=== PATIENT | female | born 1990 | race Caucasian/White ===

== ENCOUNTER → 2018-08-13 07:44 | Observation (INO) ==
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
[2018-08-12 21:02] LABS: Basophils % 0.4 %; Eosinophils % 0.3 %; Hematocrit 32.5 % (35.3-44.9); Hemoglobin 10.7 g/dL (11.5-15.4); Lymphocytes # 1.3 K/mcL (0.6-4.6); Lymphocytes % 13.1 %; Mean Corpuscular HGB Conc 32.9 g/dL (31.6-35.5); Mean Corpuscular Hemoglobin 28.8 pg (28.0-33.3); Mean Corpuscular Volume 87.6 fL (83.0-100.0); Mean Platelet Volume 11.6 fL (9.4-12.4); Monocytes # 0.6 K/mcL (0.0-1.3); Monocytes % 5.5 %; Neutrophils # 8.1 K/mcL (1.6-8.9); Platelet Count 178 K/mcL (140-400); Red Blood Count 3.71 M/mcL (3.82-4.97); Red Cell Distribution Width 13.4 % (11.5-14.5); Segmented Neutrophils % 79.7 %
[2018-08-12] MEDS: Acetaminophen 325 MG TABLET PO PRN (21:02)
[2018-08-12 21:23] LABS: Amphetamine Screen,Urine Negative ng/mL (Cutoff=1000); Barbiturate Screen,Urine Negative ng/mL (Cutoff=200); Benzodiazepines Screen,Urine Negative ng/mL (Cutoff=200); Cannabinoid Screen,Urine Negative ng/mL (Cutoff = 50); Cocaine Screen,Urine Negative ng/mL (Cutoff= 300); Opiate Screen,Urine Negative ng/mL (Cutoff=300); Phencyclidine Screen,Urine Negative ng/mL (Cutoff=25)
[2018-08-13] MEDS: Acetaminophen 325 MG TABLET PO PRN (05:42)
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
== END | disposition home or self-care (01) ==
LOC: 1NENULAB
PROVIDERS: ADMIT Registered Nurse; ATTEND Registered Nurse

== ENCOUNTER 2018-10-16 16:55 | Inpatient (IN) ==
[2018-10-16 15:45] LABS: Basophils % 0.5 %; Eosinophils % 0.3 %; Hematocrit 35.1 % (35.3-44.9); Hemoglobin 11.5 g/dL (11.5-15.4); Immature Granulocytes % 0.9 % (0-4); Lymphocytes # 1.5 K/mcL (0.6-4.6); Lymphocytes % 16.9 %; Mean Corpuscular HGB Conc 32.8 g/dL (31.6-35.5); Mean Corpuscular Hemoglobin 28.5 pg (28.0-33.3); Mean Corpuscular Volume 87.1 fL (83.0-100.0); Mean Platelet Volume 12.1 fL (9.4-12.4); Monocytes # 0.5 K/mcL (0.0-1.3); Monocytes % 5.6 %; Neutrophils # 6.7 K/mcL (1.6-8.9); Platelet Count 162 K/mcL (140-400); Red Blood Count 4.03 M/mcL (3.82-4.97); Red Cell Distribution Width 14.6 % (11.5-14.5); Segmented Neutrophils % 75.8 %
[2018-10-16 15:52] LABS: Protein/Creatinine Ratio,Urine 0.14 mg/mg (0.00-0.20)
[2018-10-16 15:53] LABS: Amphetamine Screen,Urine Negative ng/mL (Cutoff=1000); Barbiturate Screen,Urine Negative ng/mL (Cutoff=200); Benzodiazepines Screen,Urine Negative ng/mL (Cutoff=200); Cannabinoid Screen,Urine Negative ng/mL (Cutoff = 50); Cocaine Screen,Urine Negative ng/mL (Cutoff= 300); Opiate Screen,Urine Negative ng/mL (Cutoff=300); Phencyclidine Screen,Urine Negative ng/mL (Cutoff=25)
[2018-10-16 16:01] LABS: Alanine Aminotransferase 8 Units/L (7-52); Aspartate Amino Transferase 15 Units/L (13-39); BUN/Creatinine Ratio 15 (6-26); Blood Urea Nitrogen 9 mg/dL (6-20); Lactate Dehydrogenase 142 Units/L (140-271); eGFR For Non-African Americans > 60 (> 60)
[~2018-10-16 16:55] MED LIST: *HR* Nalbuphine 10 MG/ML AMPUL IVP PRN; Famotidine 20 MG/2 ML VIAL IVP PRN; Naloxone 0.4 MG/ML INJ IVP PRN; Ondansetron 4 MG/2 ML VIAL IVP PRN
[2018-10-16] MEDS ORDERED: Ringers Solution, Lactated 1,000 ML IVC SCH (17:00)
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
--- NOTE | 2018-10-16 19:08 | Anesthesia Evaluation PreOp ---
Date of Encounter: 10/16/18 Time of Encounter: 19:05 - Past History Planned Operation: TANIYA Cardiac History: Denies any Significant Hx Pulmonary History: Denies Any Significant HX LENS MARKER History: Denies Any Significant HX Other Medical History: GERD Anesthesia History: No Prior Anesthetic Complications, Past Anesthesia ([place] teeth extraction) : Yes Alcohol Use: none Drug use: none Medications and Allergies Vitamins 1 tab PO DAILY 08/12/18 [History] Allergy/AdvReac Type Severity Reaction Status Date / Time No Known Allergies Allergy Verified 08/12/18 18:40 - Meds/Allergy Pre-op Review Medications Reviewed: Yes Allergies Reviewed: Yes Anesthesia Results - Labs 10/16/18 15:22 10/16/18 15:30 Anesthesia Exam BP 138/99 P 91 R 16 T 98.5 Height: 5'5" Weight: 112.2kg NPO (# of Hours): 5hrs solids Pain Scale: 1 Pain Scale Used: Numeric (1 - 10) - HEENT Pupil (Motor): Pupils equal Mallampati: II Teeth: Normal Oral Opening: Greater than 3 - LENS MARKER LOC: Oriented LENS MARKER Motor: Normal RUE, Normal LUE, Normal RLE, Normal LLE, Normal Face LENS MARKER Sensory: Normal: RUE, LUE, RLE, LLE, Face - Cardiac Rhythm: Regular Murmur: None JVD: No Carotid Bruit: No - Pulmonary Breath Sounds: bilateral Clear Respiratory Effort: Symmetrical Anesthesia Assess/Plan ASA Score: 2 Level of consciousness: Cooperative Anesthetic Plan: Epidural Autologous Blood: No Monitoring Plan: Standard Monitors Recovery Plan: Other
--- NOTE | 2018-10-16 22:06 | OB Labor Progress Note ---
Date of Encounter: 10/16/18 Time of Encounter: 22:03 Labor Progress Note - Subjective Subjective: Patient doing well, denies pain, headache, visual disturbances or epigastric pain - Heart Tones Heart Tones: 140 bpm moderate variability +15x15 accels no decels noted. Cat 1 tracing - [place]: occasional - Interventions Interventions: Discussed POC with patient and reviewed BPs, EFM and toco. - Plan Physician notified: Yes Physician notified details: Updated on patient's status and plan of care Plan: Continue management Cervidil to be removed [id number]
[2018-10-17] MEDS ORDERED: miSOPROStol 25 MCG TABLET PO PRN (06:49)
--- NOTE | 2018-10-17 06:55 | OB Labor Progress Note ---
Date of Encounter: 10/17/18 Time of Encounter: 06:53 Labor Progress Note - Subjective Subjective: Patient resting. Patient was able to sleep through the night. Discussed POC with patient. Patient denies any questions or concerns. - Cervix Cervix: 1.5/90/-1 - Heart Tones Heart Tones: 135 bpm moderate variability +15x15 accels no decels noted. Cat. 1 tracing - [place]: irregular - Interventions Interventions: SVE, sommers catheter placed for IOL. 40cc sterile water placed in balloon. Patien t tolerated well. - Plan Physician notified: No Plan: Continue labor management Cytotec 50mcg po x1
[2018-10-17] MEDS ORDERED: Oxytocin 20 units/ LR 1000 mL 20 UNIT/1,000 ML BAG IVC SCH (11:30)
[2018-10-17] MEDS ORDERED: Oxytocin 20 units/ LR 1000 mL 20 UNIT/1,000 ML BAG IVC ONE (11:33)
--- NOTE | 2018-10-17 14:06 | OB Labor Progress Note ---
Date of Encounter: 10/17/18 Time of Encounter: 14:03 Labor Progress Note - Subjective Subjective: Pt reports some mild discomfort with contractions - Cervix Cervix: 5/80/-2 - Heart Tones Heart Tones: Baseline 130 Moderate variability Accelerations present 15 x 15 No decelerations FHR category I - [place]: Contractions irregular - Interventions Interventions: Sharma bulb out at 0900 Pitocin - Plan Plan: Continue induction management Increase pitocin to adequate contraction Anticipate Dr. Saleem aware of POC and agrees
[2018-10-17] MEDS ORDERED: Bupivacaine-MPF 0.25% 10 ML VIAL EP ONE (16:01)
[2018-10-17] MEDS ORDERED: *HR* FentaNYL (PF) 100 MCG/2 ML VIAL EP ONE (16:01)
[2018-10-17] MEDS ORDERED: *HR* FentaNYL (PF) 100 MCG/2 ML VIAL ONE (16:03)
[2018-10-17] MEDS ORDERED: Bupivacaine-MPF 0.25% 10 ML VIAL ONE (16:03)
[2018-10-17] MEDS ORDERED: Epidural Premix (fent/bupiv) 110 ML EP ONE (16:06)
[2018-10-17] MEDS ORDERED: Epidural Premix (fent/bupiv) 110 ML EP SCH (16:15)
--- NOTE | 2018-10-17 16:18 | OB Labor Progress Note ---
Date of Encounter: 10/17/18 Time of Encounter: 16:16 Labor Progress Note - Subjective Subjective: Patient reports some mild discomfort with contractions. - Cervix Cervix: 6/70/-2 - Heart Tones Heart Tones: FHR category I - Sargeant Sargeant: Contractions every 3-4 minutes and palpate moderate - Interventions Interventions: SVE AROM- small amount of clear fluid IUPC placed - Plan Physician notified: No Plan: Continue induction management Frequent position changes May have epidural upon request Anticipate
--- NOTE | 2018-10-17 17:00 | Anesthesia Procedures ---
Addendum entered and electronically signed by Grant Moody CRNA 10/19/18 11:31: Infant Delivery Date: 10/17/18 Infant Delivery Time: 22:42 Original Note: Date of Encounter: 10/17/18 Time of Encounter: 16:58 Procedures: Anesthesia - Epidural/Spinal Patient ID/Chart reviewed: Yes Patient examined: Yes OB Eval: Gestational age: 40 weeks 5 days OB Eval: : 1 OB Eval: Hx Para: 0 OB Eval: Dilated at (cm): 5 OB Eval: Contractions: Non-stressed pattern Consent Obtained: Yes Supplemental Oxygen: None/Room Air Site Prep: Aseptic Technique, Sterile prep and drape, Povidone-Iodine 1% Patient position: upright Local Anesthetic: Lidocaine 1% Amount of Local Anesthetic used: 3 Touhy Needle Gauge: 18 Touhy Needle Depth (cm): 8 Catheter Depth at Skin (cm): 13 Test Dose (1.5% Lido + Epi): Volume given (mls): 5 Test Dose Result: Negative Loading Dose: 0.25% Marcaine (mls): 5 Loading Dose: Fentanyl (mcg): 100 Loading Dose Administered: Thru Catheter Infusion Med: 0.125% Bupivacaine w/ 2 mcg/ml Fentanyl Infusion Rate (mls/hr): 14 (w/ demand bolus of 6mL q30min PRN) Catheter Secured in Place: Tegaderm, Tape Interspace Used: L3-L4 Loss of Resistance (DEEJAY): Yes Blood: No CSF: No Paresthesia: Yes (transient w/ passage of catheter (L hip)) Procedure: successful on 1st attempt; patient tolerated procedure well; VSS Vitals + FHT's: see Maria G MOISE's electronic record for VS entry
--- NOTE | 2018-10-17 23:43 | Operative Note ---
Date of procedure: 10/17/18 Pre-op diagnosis: Status post vaginal delivery, vaginal laceration Post-op diagnosis: same Procedure: Repair of vaginal laceration Anesthesia: local, epidural Surgeon: Nakul Saleem Was there an learning and development assistant present: Yes Screening Nurse: Genie Kendrick ([facility]) Screening Nurse Other: Saundra Varghese PGY1 Estimated blood loss (cc): 50 Specimen: none Condition: stable Disposition: other Procedure in Detail: Patient is a 28-year-old status post vaginal delivery advise asked to come and assist on a vaginal laceration. Patient had what appeared to be a first degree laceration which continued to bleed. Each time they try to put a stitch in the tissue just had an course additional bleeding. We did assess the situation and decided we would assist in the repair using a 3-0 Vicryl we identified with the laceration was seen in a running locking stitch we were able to reapproximate the tissue without any tearing of the tissue. Once we had that hemostatic she was noted to have a laceration on the right side wall of the vagina this was also repaired with a 3-0 Vicryl. We then proceeded to close the remaining laceration at the introitus. Good hemostasis was noted she was noted to have small area on the right periurethral area which was having a small amount of bleeding but not enough to justify placing a stitch. Did observe the patient no additional bleeding was noted and the procedure was terminated please refer to the delivery note for remaining portion of this delivery
--- NOTE | 2018-10-17 23:48 | OB/GYN Procedure Note ---
Delivery - Delivery Date: 10/17/18 Provider: Genie Kendrick Delivery induction: cervidil Delivery augmentation: rupture of membranes, pitocin Delivery monitor: external FHT, external uterine, internal uterine Anesthesia: local, epidural Quantitated Blood Loss: 350 - (s) A Delivery Date: 10/17/18 Infant Delivery Time: 22:42 Presentation: vertex Position: MONE Route of delivery: Gender: Female Viability: Viable Pounds: 7 Ounces: 8 Weight Gram: 3.41 kg at 1 minute: 8 at 5 mins: 9 Shoulder Dystocia: not encountered Specimens collected: cord blood Placenta: spontaneous Cord: nuchal cord, 3 umbilical vessels, nuchal reduced - Repair Episiotomy: none Laceration Description: Perineal - 1st Degree, Superficial (labial, periurethral) - Complications Delivery complications: none Delivery comments: This is a 28 year old G1 now P1 who was admitted for IOL s/t elevated BP. She progressed with cervidil IOL and pitocin augmentation with AROM to the second stage of labor. She pushed for 2 hours. She delivered a viable female , 'Yelena SHORE over a first-degree laceration. A nuchal cord was identified and reduced. A shoulder dystocia was not encountered. The was placed on the maternal abdomen and allowed to transition spontaneously. The cord was double clamped by brick or block maker after pulsations ceased and cut by FOB. scores were 8 at 1 minute and 9 at 5 minutes. The weighed 7lbs 8oz (3410g). The placented delivered spontaneously with a 3-vessel cord. Inspection revealed a 1st degree laceration which was repaired and several superficial abrasions on the labial and periurethral areas which were hemostatic. Dr. Saleem was called in to assist with the repair. The uterus was firm with no active bleeding. EBL was 350mL. Placenta and umbilical artery blood gases were not sent. There were no complications during the procedure. Mom and baby are skin to skin following delivery. I was gowned and gloved with Dr. Saundra Cabrera who assisted in the delivery of the infant. - Disposition Mom disposition: stable in LDR disposition: stable in LDR
[2018-10-18] MEDS ORDERED: Oxytocin 20 units/ LR 1000 mL 20 UNIT/1,000 ML BAG IVC SCH (00:01)
[2018-10-18] MEDS ORDERED: Acetaminophen 325 MG TABLET PO PRN (00:01)
[2018-10-18] MEDS ORDERED: Benzocaine/Menthol 56 GM AEROSOL SPRAY TP PRN (00:01)
[2018-10-18] MEDS: Ibuprofen 600 MG TABLET PO PRN ×2 (03:11→18:37)
[2018-10-18 06:58] LABS: Basophils % 0.1 %; Eosinophils % 0.1 %; Hematocrit 29.9 % (35.3-44.9); Immature Granulocytes % 0.5 % (0-4); Lymphocytes # 1.1 K/mcL (0.6-4.6); Lymphocytes % 8.3 %; Mean Corpuscular HGB Conc 32.8 g/dL (31.6-35.5); Mean Corpuscular Hemoglobin 28.7 pg (28.0-33.3); Mean Corpuscular Volume 87.7 fL (83.0-100.0); Mean Platelet Volume 12.3 fL (9.4-12.4); Monocytes # 0.6 K/mcL (0.0-1.3); Monocytes % 4.7 %; Platelet Count 130 K/mcL (140-400); Red Blood Count 3.41 M/mcL (3.82-4.97); Red Cell Distribution Width 14.8 % (11.5-14.5); Segmented Neutrophils % 86.3 %
[2018-10-18 07:06] LABS: Hemoglobin 9.8 g/dL (11.5-15.4); Neutrophils # 11.7 K/mcL (1.6-8.9)
[2018-10-18] MEDS: Prenatal Vit/FA 1 EACH TABLET PO SCH (07:19)
--- NOTE | 2018-10-18 10:54 | OB/GYN Progress Note ---
Date of Encounter: 10/18/18 Time of Encounter: 10:48 - Assessment and Plan (1) Status post vaginal delivery Current Visit: Yes Status: Acute Meeting day 1 milestones. Anticipate discharge home tomorrow (2) First degree perineal laceration Current Visit: Yes Status: Acute Ice pad as needed to perineum. Dermoplast as needed Motrin for pain (3) Breast feeding status of mother Current Visit: Yes Status: Acute support as needed Subjective - Subjective Principal diagnosis: Status post vaginal delivery Interval history: Patient doing well approximately 12 hours postdelivery. Adequate pain control with Motrin, voiding without difficulty, lochia light. Patient tolerating regular diet. Anticipate discharge home tomorrow Patient reports: appetite normal, voiding normally, pain well controlled, ambulating normally : doing well, nursing well Objective - Latest Vital Signs Latest vital signs: Vital Signs Temp Pulse Resp BP Pulse Ox 10/18/18 09:52 16 10/18/18 07:30 98.1 F 93 14 135/81 98 10/18/18 04:45 98.3 F 104 16 124/77 96 10/18/18 04:15 98.4 F 101 18 118/69 97 10/18/18 03:15 98.5 F 108 14 122/74 97 10/18/18 02:15 97.8 F 104 20 125/71 96 Intake and Output 10/17/18 10/18/18 10/18/18 23:59 07:59 15:59 Intake Total 360 / 360 Output Total 1300 / 1300 Balance -1300 / -1300 360 / 360 Intake: Oral 360 / 360 Output: Urine 800 / 800 Estimated Blood Loss 350 / 350 Catheter 150 / 150 Other: Meal Breakfast Percent of Meal Consumed 100% Weight 110.4 kg Patient Weight 10/18/18 23:59 Weight 110.4 kg - Exam Lungs: bilateral: normal Chest: Normal S1, Normal S2 Extremities: Present: edema Abdomen: Present: normal appearance, soft Uterus: Present: normal, firm Uterus Position: At Umbilicus - Labs Labs: Laboratory Results - last 24 hr 10/18/18 06:18 WBC 13.6 H D RBC 3.41 L Hgb 9.8 L D Hct 29.9 L MCV 87.7 MCH 28.7 MCHC 32.8 RDW 14.8 H Plt Count 130 L MPV 12.3 Immature Gran % 0.5 Seg Neutrophils % 86.3 Lymphocytes % 8.3 Monocytes % 4.7 Eosinophils % 0.1 Basophils % 0.1 Neutrophils # 11.7 H Lymphocytes # 1.1 Monocytes # 0.6 Eosinophils # 0.0 Basophils # 0.0
[2018-10-19] MEDS: Prenatal Vit/FA 1 EACH TABLET PO SCH (07:38)
[2018-10-19 08:51] VITALS: BP 126/85
--- NOTE | 2018-10-19 10:25 | Discharge Summary ---
Date of Encounter: 10/19/18 Time of Encounter: 10:26 - Discharge Diagnosis (1) Status post vaginal delivery Priority: Secondary Status: Acute Comments: Status post vaginal delivery day 2 Meeting day 2 milestones Pain well controlled Ambulating without dizziness Appetite back to normal Voiding well and passing flatus Lochia light Mood is appropriate Discussed safe spacing, planning OCP for contraceptive Healthy female 7lb 8oz 8/9 doing well support as needed Well to discharge to home Follow up in 4 weeks (2) 40 weeks gestation of Priority: Primary Status: Acute Comments: Now Delivered at 40w4d (3) anemia Priority: Secondary Status: Acute Comments: Hgb 9.8, Hct 29.9 Continue ferrous sulfate (4) Gestational hypertension Priority: Secondary Status: Resolved Comments: Resolved Qualifiers: Trimester: third trimester Qualified Code(s): O13.3 - Gestational [-induced] hypertension without significant proteinuria, third trimester - Discharge Medications Prescriptions: Ibuprofen [Motrin] 600 mg PO Q6HR PRN #30 tablet PRN Reason: Cramping Breast Pump [BREAST PUMP] 1 each .ROUTE AD #1 each Docusate [Colace] 100 mg PO BID #30 capsule Ferrous Sulfate 325 mg PO DAILY #90 tablet Home Medications: Vitamins 1 tab PO DAILY 08/12/18 [History] Acetaminophen [Tylenol] 650 mg PO Q6HR PRN tablet 10/19/18 [Rx] Benzocaine/Menthol Radford [Dermoplast Radford] 1 appl TP QID PRN aerosol 10/19/18 [Rx] Breast Pump [BREAST PUMP] 1 each .ROUTE AD #1 each 10/19/18 [Rx] Docusate [Colace] 100 mg PO BID #30 capsule 10/19/18 [Rx] Ferrous Sulfate 325 mg PO DAILY #90 tablet 10/19/18 [Rx] Ibuprofen [Motrin] 600 mg PO Q6HR PRN #30 tablet 10/19/18 [Rx] Allergies/Adverse Reactions: Allergy/AdvReac Type Severity Reaction Status Date / Time No Known Allergies Allergy Verified 08/12/18 18:40 Data Procedures and tests throughout hospitalization: Laboratory Tests 10/16/18 10/16/18 10/16/18 15:22 15:30 15:30 WBC 8.8 RBC 4.03 Hgb 11.5 Hct 35.1 L MCV 87.1 MCH 28.5 MCHC 32.8 RDW 14.6 H Plt Count 162 MPV 12.1 Immature Gran % 0.9 Seg Neutrophils % 75.8 Lymphocytes % 16.9 Monocytes % 5.6 Eosinophils % 0.3 Basophils % 0.5 Neutrophils # 6.7 Lymphocytes # 1.5 Monocytes # 0.5 Eosinophils # 0.0 Basophils # 0.0 BUN Creatinine Est GFR ( Amer) Est GFR (Non-Af Amer) BUN/Creatinine Ratio Uric Acid AST ALT Lactate Dehydrogenase Urine Creatinine 57 Protein/Creatinin Ratio 0.14 Urine Total Protein 8 Urine Opiates Screen Negative Ur Barbiturates Screen Negative Ur Phencyclidine Scrn Negative Ur Amphetamines Screen Negative U Benzodiazepines Scrn Negative Urine Cocaine Screen Negative U Marijuana (THC) Screen Negative Ur Drug Screen Interp See Below 10/16/18 10/18/18 15:30 06:18 WBC 13.6 H D RBC 3.41 L Hgb 9.8 L D Hct 29.9 L MCV 87.7 MCH 28.7 MCHC 32.8 RDW 14.8 H Plt Count 130 L MPV 12.3 Immature Gran % 0.5 Seg Neutrophils % 86.3 Lymphocytes % 8.3 Monocytes % 4.7 Eosinophils % 0.1 Basophils % 0.1 Neutrophils # 11.7 H Lymphocytes # 1.1 Monocytes # 0.6 Eosinophils # 0.0 Basophils # 0.0 BUN 9 Creatinine 0.60 Est GFR ( Amer) > 60 Est GFR (Non-Af Amer) > 60 BUN/Creatinine Ratio 15 Uric Acid 5.0 AST 15 ALT 8 Lactate Dehydrogenase 142 Urine Creatinine Protein/Creatinin Ratio Urine Total Protein Urine Opiates Screen Ur Barbiturates Screen Ur Phencyclidine Scrn Ur Amphetamines Screen U Benzodiazepines Scrn Urine Cocaine Screen U Marijuana (THC) Screen Ur Drug Screen Interp Date of admission: 10/16/18 16:55 Primary care physician: PCP NONE Consults: 10/18/18 00:01 Consult to Machine Operator Assistant [CONS] Routine Comment: Vaginal delivery, consult needed Discharging clinician: Saundra Cabrera Anticipated date of discharge: 10/19/18 - Patient Status Disposition: Home, Self-Care Condition: Good Functional capacity at discharge: independent ambulation Overall status at discharge: patient is back to baseline - Discharge Instructions Follow Up With: NONE,PCP [Primary Care Provider] - - Diet and Activity Activity: resume usual activities as tolerated Diet: advance to your usual diet Hospital Course Reason for admission: induction of labor, other (Gestational hypertension) Delivery: Episiotomy: none Laceration: 1st degree (1st degree labial and periurethral, repaired) Other procedures: none complications: none Discharge diagnosis: IUP at term delivered baby: female Hospital course: This is a 28 year old G1 now P1 who was admitted for IOL s/t elevated BP. She progressed with cervidil IOL and pitocin augmentation with AROM to the second stage of labor. She pushed for 2 hours. She delivered a viable female infant, 'Yelena SHORE over a first-degree laceration. A nuchal cord was identified and reduced. A shoulder dystocia was not encountered. The infant was placed on the maternal abdomen and allowed to transition spontaneously. The cord was double clamped by powder blender and pourer after pulsations ceased and cut by FOB. scores were 8 at 1 minute and 9 at 5 minutes. The weighed 7lbs 8oz (3410g). The placented delivered spontaneously with a 3-vessel cord. Inspection revealed a 1st degree laceration which was repaired and several superficial abrasions on the labial and periurethral areas which were hemostatic. Dr. Saleem was called in to assist with the repair. The uterus was firm with no active bleeding. EBL was 350mL. Placenta and umbilical artery blood gases were not sent. There were no complications during the procedure. Mom and baby are skin to skin following delivery. I was gowned and gloved with Dr. Saundra Cabrera who assisted in the delivery of the infant. Time Attestation: Total time spent providing and/or coordinating discharge services: Time Spent: Greater than 30 minutes Exam - Constitutional Vitals: Temp Pulse Resp BP Pulse Ox 97.8 F 91 16 126/85 97 10/19/18 07:30 10/19/18 07:30 10/19/18 07:30 10/19/18 07:30 10/18/18 20:05 General appearance IM: A&O X 3, pleasant, no acute distress, answers questions appropriately - Respiratory Respiratory exam: Present: CTAB. Absent: rales, rhonchi, wheezes - Cardiovascular Cardiovascular exam IM: Present: RRR, +S1, +S2 - GI/Abdominal GI/Abdominal exam IM: normal bowel sounds, soft - Rectal Rectal exam: deferred - Uterine Tone: Firm Uterus Position: At Umbilicus - Extremities Exam Extremities exam IM: Present: pedal edema, warm. Absent: tenderness - Neurological Exam Neurological exam: alert, CN II-XII intact, oriented X3, no focal deficits - Psychiatric Additional comments: Mood is appropriate - Attending Attestation I have seen and examined patient independent of resident exam. I agree with the assessment and plan as outlined. Pt is meeting all milestones and desires discharge home today. Discharge home. Follow-up in 4 weeks.
== END 2018-10-19 14:19 | disposition home or self-care (01) | DRG 807 ==
LOC: 1NENULAB → 1NENUOBS 10-18 03:29
PROVIDERS: ADMIT Advanced Practice Midwife; ATTEND Advanced Practice Midwife